=== PATIENT | female | born 1975 | race Caucasian/White ===

== ENCOUNTER → 2017-05-29 | Outpatient (CLI) | payer BC ==
[~2017-05-29] MED LIST: AUGMENTIN1 TA2 PO; PROTONIX 40MG T40 MG PO; PROVENTIL0.09 MG/A1 IH
== END ==
LOC: RT 12:01
DX: R00.2 Palpitations (principal); R60.9 Edema, unspecified; R42 Dizziness and giddiness; R94.31 Abnormal electrocardiogram [ECG] [EKG]